=== PATIENT | female | born 1955 | race Two or more races ===

== ENCOUNTER → 2025-07-19 | Outpatient (CLI) | payer OTHER, MEDICAID, SELFPAY ==
--- NOTE | 2025-07-19 13:40 | XR_ITS ---
Examination: Bone densitometry Date and time of exam:July 19, 2025, 1404 hours INDICATIONS: Hysterectomy age 20, seizure medication Technique: Lumbar spine and hip total bone mineralization values of an calculated. Peak reference and age match control results have been displayed. Findings: Lumbar spine total bone mineralization is0.904 gm/cm2. This is 1.3 standard deviations below peak reference. This is 0.9 standard deviations above age-matched controls. Hip total bone mineralization is 0.693 gm/cm2 This is 2.0 standard deviations below peak reference. This is 0.5 standard deviations below age-matched controls Impression: There is osteopenia based on lumbar spine measurements. There is osteoporosis based on hip measurements Lumbar mineralization is increased 8.3% compared with December 09, 2019 Hip mineralization is increased 3.9% compared with December 09, 2019
== END | disposition home or self-care (01) ==
LOC: CDIM 13:36
PROVIDERS: Referring Provider Nurse Practitioner Family; Visit Provider Nurse Practitioner Family
DX: Z13.820 Encounter for screening for osteoporosis (principal); M85.88 Other specified disorders of bone density and structure, other site; M81.0 Age-related osteoporosis without current pathological fracture
CPT/HCPCS: 77080

== ENCOUNTER → 2025-08-03 | Outpatient (CLI) | payer OTHER, MEDICAID, SELFPAY ==
--- NOTE | 2025-08-03 13:30 | XR_ITS ---
Examination: Screening digital mammography, bilateral Computer aided detection 3-D breast Tomosynthesis, bilateral Date and time of exam: 08/03/2025, 1:09 p.m. Comparisons: January 2022 through May 2024 Indications: Screening Technique: Nonmagnified MLO, CC views of the breasts to been obtained, reconstructed from 3-D Tomosynthesis images. R2 computer aided detection program utilized for evaluation of suspicious masses and/or abnormal calcifications. 3-D Tomosynthesis images obtained. Technologist: Findings: The breasts are heterogeneously dense, which may obscure small masses. No evidence of abnormal masses or suspicious calcifications. Stable left post biopsy marker clip. Impression: BI-RADS category 2: Benign findings Recommend 1 year follow-up mammogram
== END | disposition home or self-care (01) ==
LOC: CDIM 13:01
PROVIDERS: PCP Family Medicine; Referring Provider Nurse Practitioner Family; Visit Provider Nurse Practitioner Family
DX: Z12.31 Encounter for screening mammogram for malignant neoplasm of breast (principal); R92.323 Mammographic fibroglandular density, bilateral breasts
CPT/HCPCS: 77063; 77067

== ENCOUNTER 2025-08-29 04:15 | Emergency (ER) | payer OTHER, MEDICAID, SELFPAY ==
[2025-08-29 04:16] VITALS: BP 141/65; PULSE 74; RESP 18; TEMP 36.8; O2SAT 97
--- NOTE | 2025-08-29 04:48 | XR_ITS ---
Examination: Foot, left, 3 views Technique: AP, oblique, lateral views foot, 3 views Date and time of exam: August 29, 2025, 0510 hours INDICATIONS: Patient fell today with injury to the foot, first digit pain. FINDINGS: Dislocation at the interphalangeal joint first digit Suspicious for tiny fracture at the base of the distal phalanx first digit IMPRESSION: Dislocation at the interphalangeal joint first digit
--- NOTE | 2025-08-29 05:35 | XR_ITS ---
Examination: Foot, left, 3 views Technique: AP, oblique, lateral views foot, 3 views Date and time of exam: August 29, 2025, 0551 hours INDICATIONS: Dislocation interphalangeal joint first digit on films August 29, 2025 0512 hours, post reduction FINDINGS: Successful reduction dislocation interphalangeal joint first digit Small chip fracture off the base of the distal phalanx first digit on the second digit side with minimal offset IMPRESSION: Successful reduction dislocation interphalangeal joint first digit Small chip fracture off the base of the distal phalanx first digit
--- NOTE | 2025-08-29 05:38 | EDNOTE_ITS ---
Lower Extremity Injury RME/HPI General Chief Complaint: Fall Stated Complaint: LEFT BIG TOE PAIN S/P FALL Time Seen by Provider: 08/29/25 04:48 Arrival date/time: 08/29/25 04:15 This is a case of 69-year-old female with no medical history came in in the emergency room due to toe injury history of present illness started 1 hour prior to arrival in the emergency room patient accidentally stabbed his left great toe on a wall causing her to fall and hyper flex his left great toe sustaining dislocation of the left great toe no other injury noted denies any head neck chest or abdominal injury no loss of consciousness Limitations: no limitations Related Data Home Medications ?Medication ?Instructions ?Recorded ?Confirmed loratadine 10 mg tablet 10 mg PO DAILY ALLERGY ##0 0 04/01/13 04/05/21 phenobarbital 32.4 mg tablet 32.4 mg PO BID 04/05/21 0 04/05/21 phenytoin sodium extended 100 mg 100 mg PO TID 1 04/05/21 capsule Previous Rx's ?Medication ?Instructions ?Recorded cephalexin 500 mg capsule 500 mg PO QID #28 caps 04/18 prochlorperazine maleate 10 mg 10 mg PO BID PRN nausea and 04/23/23 tablet (Compazine) vomiting #14 tabs naproxen 500 mg tablet (Naprosyn) 500 mg PO BID PRN pa in #10 tabs 08/29/25 Allergies Allergy/AdvReac Type Severity Reaction Status Date / Time No Known Allergies Allergy Verified 04/18/23 11:57 Review of Systems Review of Systems Systems Reviewed: All systems reviewed, normal except as documented Constitutional Constitutional: Reports system reviewed and no additional complaints, except as documented and Reports as per HPI Cardiovascular Cardiovascular: Reports system reviewed and no additional complaints, except as documented and Reports as per HPI Respiratory Respiratory: Reports system reviewed and no additional complaints, except as documented and Reports as per HPI Gastrointestinal Gastrointestinal: Reports system reviewed and no additional complaints, except as documented and Reports as per HPI Genitourinary Genitourinary: Reports system reviewed and no additional complaints, except as documented and Reports as per HPI Musculoskeletal Musculoskeletal: Reports system reviewed and no additional complaints, except as documented and Reports as per HPI Neurologic Neurologic: Reports system reviewed and no additional complaints, except as docu mented and Reports as per HPI Past Medical History Past Medical History NEUROLOGIC: Positive Seizures CARDIAC: Positive Hypercholesterolemia and Hypertension; Negative Congestive Heart Failure RESPIRATORY: Negative Chronic Obstructive Pulmonary Disease (COPD) GENITOURINARY: Negative Renal Disease ENDOCRINE: Negative Diabetes Mellitus Type 1 or Diabetes Mellitus Type 2 Social History SMOKING STATUS: Never smoker ED Exam General Limitations: Present no limitations General appearance: Present alert, in no apparent distress and other (Is awake alert oriented not in distress nontoxic looking well-hydrated well-nourished) Head Head exam: Present atraumatic, normocephalic and normal inspection Eye Eye exam: Present normal appearance, PERRL and EOMI ENT ENT exam: Present normal exam, normal oropharynx and mucous membranes moist Neck Neck exam: Present normal inspection, full ROM and trachea midline; Absent tenderness, meningismus, lymphadenopathy or thyromegaly Chest Chest inspection: Present normal inspection and symmetric chest wall rise Respiratory Respiratory exam: Present normal lung sounds bilaterally; Absent respiratory distress, wheezes, stridor, accessory muscle use or prolonged expiratory phase Cardiovascular Cardiovascular exam: Present regular rate, normal rhythm and normal heart sounds; Absent bradycardia, tachycardia, irregular rhythm or systolic murmur Abdominal Exam Abdominal exam: Present soft and normal bowel sounds; Absent distention, tenderness, guarding, rebound, rigidity, diminished bowel sounds, hyperactive bowel sounds, hypoactive bowel sounds or organomegaly Extremities Exam Extremities exam: Present normal inspection and full ROM Expanded Lower Extremity Exam Foot/toe exam: Present normal inspection, full ROM and other (Noted moderate tenderness on palpation of the left great toe with gross deformity noted no crepitation ROM is limited neurovascular intact no cellulitis no abscess); Absent tenderness, swelling, abrasion, laceration, ecchymosis, deformity, crepitus, dislocation, erythema, amputation, puncture wound, foreign body, calcaneal tenderness, tenderness at base of 5th metatarsal, nail avulsion or subungual hematoma Back Exam Back exam: Present normal inspection and full ROM Neurological Exam Neurological exam: Present alert, oriented X3, CN II-XII intact, normal gait (Using cane for ambulation) and reflexes normal; Absent motor sensory deficit Psychiatric Psychiatric exam: Present normal affect and normal mood Skin Skin exam: Present warm, dry, intact and normal color Course Quality Measures none Orders Category Date Time Status Splint / Immobilizer STAT Care 08/29/25 05:35 Active XR foot comp LT min 3V Stat Exams 08/29/25 04:48 Taken XR foot comp LT min 3V Stat Exams 08/29/25 05:35 Ordered HYDROcodone*/APAP 5/325 [Flushing 5/325] Med 08/29/25 05:35 Once 1 tab PO X1 ONE Vital Signs Vital signs: Vital Signs Temperature 98.3 F 08/29/25 04:16 Pulse Rate 74 08/29/25 04:16 Respiratory Rate 18 08/29/25 04:16 Blood Pressure 141/65 H 08/29/25 04:16 Pulse Oximetry (%) 97 08/29/25 04:16 Oxygen Delivery Method Room Air 08/29/25 04:16 Oxygen saturation is 97% in room air Extremity Injury, Lower MDM Narrative MDM Narrative:: This is a case of 69-year-old female with no medical history came in in the emergency room due to toe injury history of present illness started 1 hour prior to arrival in the emergency room patient accidentally stabbed his left great toe on a wall causing her to fall and hyper flex his left great toe sustaining dislocation of the left great toe no other injury noted denies any head neck chest or abdominal injury no loss of consciousness physical examination patient is awake alert oriented not in distress nontoxic looking well-hydrated well- nourished patient noted to have moderate tenderness on the left great toe with gross deformity on the left great toe with mild swelling ROM is limited neurovascular is intact neurological exam is normal awake alert oriented x 4 no focal deficit GCS 15/15 patient using cane for ambulation x-ray showed dislocation of the distal phalanx of the left great toe thus reduction of the dislocation was performed patient tolerated well the procedure neurovascular intact Phu tape was applied shoe boots was applied patient was advised to follow-up with PCP to be referred to orthopedic surgeon for further evaluation and treatment of status post reduction of the left dislocation of the left great toe for any worsening symptoms or any emergent concern return precaution in the ER was advised Patient was discharged with comfortable condition walking with stable gait. Patient verbalized no further complains explained diagnosis and answered patient question. Patient is comfortable with the proposed management plan including the need to follow up with his/her primary care physician and any specialist if applicable Discussed patient for any urgent condition or worsening sx, He/She needed to go to emergency room immediately or call 911. Patient acknowledge the responsibility to follow up as instructed and to monitor her/his symptoms. For any persistence of the symptoms for more than 3-5 days return precaution advised. Discussed the result of the test and was given printed discharge instruction Patient data External records reviewed:: [facility] previous records Clinical information provided by:: patient Social determinants that could affect healthcare access:: none Patient has the following chronic illnesses:: None How is presenting disease/condition affected by chronic disease/condition?: no chronic disease Evaluation data The following diagnostics were reviewed and interpreted by me:: radiology exam(s) Lab and/or radiology exams considered but not ordered:: Reviewed Interpretation Summary: Reviewed Medications / Prescriptions Medications or Prescriptions considered but not ordered:: Given Medication administrations:: Medication Administration History Hydrocodone Bitart/Acetaminophen (Hydrocodone/Apap 5/325 Tablet) 1 tab PO X1 ONE Stop: 08/29/25 05:36 Given Consultations Consultation(s) initiated? (list below): No Diagnosis Extremity Injury, Lower Differential Diagnosis: fracture of toe and other (Toe dislocation) Most likely diagnosis given after review of the tests above:: Toe dislocation Admission Indicated Admission indicated?: not indicated Explain why admission is indicated or not indicated:: Not indicated Admission Request Was there a request for admission?: No Admission Attestation Admission request attestation: Not indicated Disposition Plan Disposition Plan: Discharge Discharge Attestation Discharge Attestation: The patient and all family members were given an opportunity to ask questions and understood the discharge instructions. Discharge instructions specifically effects, indications for sooner follow up or return to the emergency department, and the expected course of current diagnosis. Patient condition: Stable Discharge Plan Plan Patient Disposition: HOME (Self Care) Patient condition on transfer: Stable Prescriptions/Referrals Prescriptions/Med Rec: New naproxen [Naprosyn] 500 mg tablet 500 mg PO BID PRN (Reason: pain) Qty: 10 0RF No Action loratadine 10 MG tablet 10 mg PO DAILY Qty: 0 phenytoin sodium extended 100 mg capsule 100 mg PO TID Patient Comments: TAKE ONE CAPSULE BY MOUTH THREE TIMES DAILY phenobarbital 32.4 mg tablet 32.4 mg PO BID Patient Comments: TAKE ONE TABLET BY MOUTH EVERY MORNING THEN TAKE TWO TABLETS BY MOUTHIN THE EVENING THEN TAKE ONE TABLET NEEDED cephalexin 500 mg capsule 500 mg PO QID Qty: 28 0RF prochlorperazine maleate [Compazine] 10 mg tablet 10 mg PO BID PRN (Reason: nausea and vomiting) Qty: 14 0RF Referrals: Emerson Bryant([facility]MD [Primary Care Provider, Family Practice] - In 1 week Problem List Clinical Impression: Closed dislocation of great toe of left foot Patient/Caregiver Discharge Instructions Education Materials: ED Toe Dislocation Additional Instructions: Follow-up with your primary care physician in 2 days for reevaluation and to be referred to orthopedic surgeon for status post reduction of the left great toe worsening symptoms or any emergent concern return to the emergency room immediately or call 911 take your medication as directed ice pack every 2 hours for 20 minutes for 24 hours then alternate with warm compress elevate to decrease swelling keep the shoe boots in place until cleared by your primary care physician Print Language: [place]er Stand Alone Forms: [employer] Award Info., Patient Portal Info Letter PA/FLYING I INSTRUCTOR Supervising Physician PA/LOIS Supervising Physician: Dr. Nando Cabrera
== END 2025-08-29 07:41 | disposition home or self-care (01) ==
PROVIDERS: Emergency Provider Emergency Medicine; PCP Family Medicine
DX: S99.922A Unspecified injury of left foot, initial encounter (principal); W19.XXXA Unspecified fall, initial encounter
CPT/HCPCS: 73630; 99282